=== PATIENT | female | born 1935 | race Caucasian/White ===

== ENCOUNTER → 2020-04-17 | Outpatient (CLI) | payer OTHER, BC ==
[~2020-04-17] MED LIST: AMLODIPINE BESY10 MG PO; APAP650 PO; ASPIR 8181 MG PO; ASPIRIN325 PO; CARDURA4 MG PO; LIPITOR40 MG PO; METOPROLOL SUCC25 M1 PO; NITRO-TIME2.5 MG PO; NORCO 5-325 TA1 EACH PO; PROTONIX40 M1 PO; ZOFRAN4 MG PO
== END ==
LOC: SJCVC 10:20
PROVIDERS: ATTEND Internal Medicine
DX: R94.31 Abnormal electrocardiogram [ECG] [EKG] (principal); I44.7 Left bundle-branch block, unspecified; I25.10 Atherosclerotic heart disease of native coronary artery without angina pectoris; I10 Essential (primary) hypertension; E78.5 Hyperlipidemia, unspecified; I65.23 Occlusion and stenosis of bilateral carotid arteries; C49.A0 Gastrointestinal stromal tumor, unspecified site; C37 Malignant neoplasm of thymus; Z98.61 Coronary angioplasty status; Z79.899 Other long term (current) drug therapy

== ENCOUNTER → 2020-04-30 | Outpatient (CLI) | payer OTHER, BC | LOC: SJCVC 10:23 | PROVIDERS: ATTEND Internal Medicine | DX: I25.10 Atherosclerotic heart disease of native coronary artery without angina pectoris (principal); I10 Essential (primary) hypertension; C49.A2 Gastrointestinal stromal tumor of stomach; C37 Malignant neoplasm of thymus; I65.23 Occlusion and stenosis of bilateral carotid arteries; Z95.5 Presence of coronary angioplasty implant and graft; Z79.899 Other long term (current) drug therapy ==

== ENCOUNTER → 2020-10-26 | Outpatient (CLI) | payer OTHER, BC | LOC: SJCVC 11:23 | PROVIDERS: ATTEND Internal Medicine | DX: R94.31 Abnormal electrocardiogram [ECG] [EKG] (principal); I25.10 Atherosclerotic heart disease of native coronary artery without angina pectoris; I10 Essential (primary) hypertension; E78.5 Hyperlipidemia, unspecified; C49.A2 Gastrointestinal stromal tumor of stomach; C37 Malignant neoplasm of thymus; I65.23 Occlusion and stenosis of bilateral carotid arteries; Z86.73 Personal history of transient ischemic attack (TIA), and cerebral infarction without residual deficits; Z79.82 Long term (current) use of aspirin; Z79.899 Other long term (current) drug therapy; Z88.5 Allergy status to narcotic agent ==

== ENCOUNTER → 2021-04-14 | Outpatient (CLI) | payer OTHER, BC | LOC: SJCVC 11:28 | PROVIDERS: ATTEND Internal Medicine | DX: R94.31 Abnormal electrocardiogram [ECG] [EKG] (principal); I25.10 Atherosclerotic heart disease of native coronary artery without angina pectoris; I10 Essential (primary) hypertension; E78.5 Hyperlipidemia, unspecified; I65.23 Occlusion and stenosis of bilateral carotid arteries; C49.A2 Gastrointestinal stromal tumor of stomach; C37 Malignant neoplasm of thymus; D64.9 Anemia, unspecified; R06.09 Other forms of dyspnea; Z88.8 Allergy status to other drugs, medicaments and biological substances; Z88.5 Allergy status to narcotic agent; Z79.82 Long term (current) use of aspirin; Z79.899 Other long term (current) drug therapy; Z86.73 Personal history of transient ischemic attack (TIA), and cerebral infarction without residual deficits; Z95.5 Presence of coronary angioplasty implant and graft ==